=== PATIENT | female | born 1945 | race Caucasian/White ===

== ENCOUNTER → 2021-01-28 | Outpatient (CLI) | payer OTHER ==
[~2021-01-28] MED LIST: BENAZEPRIL HCL40 MG PO; CHLORTHALIDONE25 MG PO; ELIQUIS2.5 MG PO; ELIQUIS5 MG PO; ENDOCET 7.5-321 EACH PO; FLONASE 0.05% N16 GM; GLUCOPHAGE500 MG PO; HYDROCODON-ACE1 EAC6 PO; LIPITOR20 MG PO; LOPRESSOR 50 MG50 MG PO; LORATADINE10 MG PO; MOBIC7.5 MG PO; NORVASC10 MG PO; OMEPRAZOLE20 M1 PO; PROZAC40 MG PO; TOPROL XL50 MG PO
== END ==
LOC: KOH-I 09:25
DX: M89.562 Osteolysis, left lower leg (principal); M25.462 Effusion, left knee; S83.142A Lateral subluxation of proximal end of tibia, left knee, initial encounter; X58.XXXA Exposure to other specified factors, initial encounter; Z96.652 Presence of left artificial knee joint
CPT/HCPCS: 73700

== ENCOUNTER → 2021-01-29 | Outpatient (CLI) | payer OTHER ==
[2021-01-29 09:51] LABS: HEMOGLOBIN 13.3 gm/dl (12.3-15.3); RED BLOOD COUNT 4.46 M/UL (4.00-5.10); WHITE BLOOD COUNT 7.6 K/UL (4.5-11.0)
== END ==
LOC: EDSTATUS 08:30 → OPSV2 08:30
PROVIDERS: Orthopaedic Surgery
DX: Z01.818 Encounter for other preprocedural examination (principal); M89.562 Osteolysis, left lower leg
CPT/HCPCS: 36415; 80048; 83036; 85025; 85652; 86140; 87077; 87081; 87086; 87186; 93005

== ENCOUNTER → 2021-02-03 | Outpatient (CLI) | payer OTHER | LOC: LAB 09:23 | PROVIDERS: Orthopaedic Surgery | DX: Z01.812 Encounter for preprocedural laboratory examination (principal) | CPT/HCPCS: 36415; 80048; 86850; 86900; 86901 ==

== ENCOUNTER 2021-02-04 05:57 | Inpatient (IN) | payer OTHER ==
[~2021-02-04] VITALS: Ht 157.5 cm; Wt 76.2 kg
[~2021-02-04 05:57] MED LIST changes: -ELIQUIS2.5 MG PO; -ELIQUIS5 MG PO; -ENDOCET 7.5-321 EACH PO; -FLONASE 0.05% N16 GM; -HYDROCODON-ACE1 EAC6 PO; -LOPRESSOR 50 MG50 MG PO
[2021-02-04] MEDS ORDERED: ELIQUIS2.5 MG PO (08:32)
[2021-02-04] MEDS ORDERED: ENDOCET 7.5-321 EACH PO (08:32)
[2021-02-05 02:49] LABS: HEMOGLOBIN 9.8 gm/dl (12.3-15.3); RED BLOOD COUNT 3.16 M/UL (4.00-5.10); WHITE BLOOD COUNT 13.6 K/UL (4.5-11.0)
[2021-02-05] MEDS ORDERED: HYDROCODON-ACE1 EAC6 PO (11:13)
--- NOTE | 2021-02-05 11:14 | NUR ---
NOTIFIED OF CRITICAL SODIUM 118.
--- NOTE | 2021-02-05 16:45 | NUR ---
NOTIFIED OF SODIUM 116
[2021-02-06 03:58] LABS: HEMOGLOBIN 8.6 gm/dl (12.3-15.3); WHITE BLOOD COUNT 11.4 K/UL (4.5-11.0)
[2021-02-06 04:02] LABS: RED BLOOD COUNT 2.8 M/UL (4.00-5.10)
[2021-02-06 04:17] LABS: BUN/CREATININE RATIO 30 (0-10)
[2021-02-06] MEDS ORDERED: FLONASE 0.05% N16 GM (08:33)
--- NOTE | 2021-02-06 11:40 | NUR ---
CRITICAL SODIUM LEVEL OF 118, PATIENT WITH PROTOCOL ORDER TO CALL DR. ARREGUIN IF SODIUM LEVEL DROPS BELOW 118 OR IS GREATER THAN 127. DR. VIZCARRA ALSO NOTIFIED. NO NEW ORDERS AT THIS TIME.
--- NOTE | 2021-02-06 12:58 | NUR ---
WHILE WORKING WITH PHYSICAL THERAPY PATIENTS HEMOVAC DRAIN FELL OUT. AREAS REINFORECED WITH 4X4'S AND TAPE. 50 ML IN HEMOVAC AT THAT TIME. SCANT BLOOD NOTED TO AREA AFTER CHECKING 1 HOUR LATER, 4X4'S CHANGED. DR. ENAMORADO GUNNER'S MATE G NOTIFIED. NO NEW ORDERS AT THIS TIME.
[2021-02-07 03:13] LABS: HEMOGLOBIN 7.4 gm/dl (12.3-15.3); WHITE BLOOD COUNT 9.3 K/UL (4.5-11.0)
[2021-02-07 03:18] LABS: RED BLOOD COUNT 2.41 M/UL (4.00-5.10)
[2021-02-07 03:39] LABS: BUN/CREATININE RATIO 25 (0-10)
[2021-02-07 16:16] LABS: HEMOGLOBIN 7.3 gm/dl (12.3-15.3)
--- NOTE | 2021-02-07 17:44 | NUR ---
NOTIFIED ORTHO MANAGER ARCHITECTURAL, DR. ENAMORADO, PER DR. VIZCARRA R/T PATIENT DECREASED HGB AND HCT. DR. ENAMORADO ADVISED NO NEED FOR BLOOD AT THIS CURRENT TIME. CONTINUE TO MONITOR PATIENT AND LABS.
[2021-02-07 22:54] LABS: HEMOGLOBIN 7.1 gm/dl (12.3-15.3)
[2021-02-08 04:28] LABS: HEMOGLOBIN 7.2 gm/dl (12.3-15.3); RED BLOOD COUNT 2.3 M/UL (4.00-5.10); WHITE BLOOD COUNT 8.6 K/UL (4.5-11.0)
[2021-02-08 04:56] LABS: BUN/CREATININE RATIO 20 (0-10)
[2021-02-08 08:25] LABS: HEMOGLOBIN 6.9 gm/dl (12.3-15.3)
[2021-02-09 02:35] LABS: WHITE BLOOD COUNT 8.9 K/UL (4.5-11.0)
[2021-02-09 02:39] LABS: HEMOGLOBIN 10.6 gm/dl (12.3-15.3); RED BLOOD COUNT 3.6 M/UL (4.00-5.10)
[2021-02-09 03:04] LABS: BUN/CREATININE RATIO 11 (0-10)
[2021-02-09 09:07] LABS: BUN/CREATININE RATIO 13 (0-10)
[2021-02-10 02:22] LABS: HEMOGLOBIN 10.1 gm/dl (12.3-15.3); RED BLOOD COUNT 3.48 M/UL (4.00-5.10); WHITE BLOOD COUNT 10.6 K/UL (4.5-11.0)
[2021-02-10 02:51] LABS: BUN/CREATININE RATIO 17 (0-10)
[2021-02-11 02:05] LABS: HEMOGLOBIN 9.8 gm/dl (12.3-15.3); RED BLOOD COUNT 3.3 M/UL (4.00-5.10); WHITE BLOOD COUNT 9.1 K/UL (4.5-11.0)
[2021-02-11 02:30] LABS: BUN/CREATININE RATIO 17 (0-10)
[2021-02-12 04:07] LABS: RED BLOOD COUNT 3.41 M/UL (4.00-5.10); WHITE BLOOD COUNT 7.8 K/UL (4.5-11.0)
[2021-02-12 04:32] LABS: BUN/CREATININE RATIO 14 (0-10)
[2021-02-13 04:28] LABS: HEMOGLOBIN 10.1 gm/dl (12.3-15.3); RED BLOOD COUNT 3.43 M/UL (4.00-5.10)
[2021-02-13 04:48] LABS: BUN/CREATININE RATIO 11 (0-10)
[2021-02-14] MEDS ORDERED: ELIQUIS5 MG PO (10:50)
[2021-02-14] MEDS ORDERED: LOPRESSOR 50 MG50 MG PO (10:50)
--- NOTE | 2021-02-14 13:08 | NUR ---
PATIENT AND DAUGHTER EDUCATED ON DISCHARGE INFORMATION. THEY BOTH AGREE AND UNDERSTAND. IV REMOVED AT 1250. PATIENT TRANSPORTED VIA WHEELCHAIR DOWNSTAIRS BY SUGEY GARCIA.
== END 2021-02-14 13:18 | disposition home or self-care (01) | DRG 466 ==
LOC: OR 05:57 → M/S 08:26 → OR 12:56 → M/S 12:56 → EDSTATUS 15:30 → M/S 02-07 15:20 → PROG CARE 02-08 03:40 → M/S 02-11 16:00
PROVIDERS: Internal Medicine; Internal Medicine Nephrology; Physician Assistant Medical; ADMIT Orthopaedic Surgery
PROC: 0SRD0J9 Replacement of Left Knee Joint with Synthetic Substitute, Cemented, Open Approach (ICD-10-PCS; 2021-02-04)
PROC: 0SPD0JZ Removal of Synthetic Substitute from Left Knee Joint, Open Approach (ICD-10-PCS; principal; 2021-02-04 07:45)
PROC: 30233N1 Transfusion of Nonautologous Red Blood Cells into Peripheral Vein, Percutaneous Approach (ICD-10-PCS; 2021-02-08)
DX: T84.053A Periprosthetic osteolysis of internal prosthetic left knee joint, initial encounter (principal); G93.41 Metabolic encephalopathy; F05 Delirium due to known physiological condition; D62 Acute posthemorrhagic anemia; E87.1 Hypo-osmolality and hyponatremia; T84.033A Mechanical loosening of internal left knee prosthetic joint, initial encounter; I10 Essential (primary) hypertension; I48.91 Unspecified atrial fibrillation; Z96.653 Presence of artificial knee joint, bilateral; R73.03 Prediabetes; E78.5 Hyperlipidemia, unspecified; K21.9 Gastro-esophageal reflux disease without esophagitis; Z87.442 Personal history of urinary calculi; Z90.49 Acquired absence of other specified parts of digestive tract; Z88.5 Allergy status to narcotic agent; Z79.899 Other long term (current) drug therapy; Z90.710 Acquired absence of both cervix and uterus; Z79.84 Long term (current) use of oral hypoglycemic drugs
CPT/HCPCS: ECHO; 36415; 36430; 71046; 73560; 73562; 76000; 80048; 80053; 80202; 81001; 82140; 82436; 82533; 82550; 82553; 82962; 83735; 83935; 84132; 84133; 84295; 84300; 84443; 84484; 85014; 85018; 85025; 85027; 86850; 86900; 86901; 86920; 87070; 87086; 87205; 93005; 93306; 94640; 94664; 94760; 97110; 97110-GP-CQ; 97116; 97116-GP-CQ; 97162; 97164; 97166; 97168; 97530; 97530-GP-CQ; 97535; C1713; C1762; C1776; J0171; J0690; J1100; J1630; J1644; J2001; J2060; J2250; J2405; J2704; J2710; J2795; J3010; J3370; J3475; J3486; J7030; J7040; J7050; J7120; J7131; P9016

== ENCOUNTER → 2021-02-22 | Outpatient (CLI) | payer OTHER ==
[~2021-02-22] MED LIST changes: +ELIQUIS2.5 MG PO; +ELIQUIS5 MG PO; +ENDOCET 7.5-321 EACH PO; +FLONASE 0.05% N16 GM; +HYDROCODON-ACE1 EAC6 PO; +LOPRESSOR 50 MG50 MG PO
[2021-02-22 12:46] LABS: HEMOGLOBIN 11.5 gm/dl (12.3-15.3); RED BLOOD COUNT 3.9 M/UL (4.00-5.10); WHITE BLOOD COUNT 7.3 K/UL (4.5-11.0)
[2021-02-22 13:43] LABS: BUN/CREATININE RATIO 18 (0-10)
== END ==
LOC: LAB 11:50
PROVIDERS: Internal Medicine
DX: D64.9 Anemia, unspecified (principal); E87.1 Hypo-osmolality and hyponatremia
CPT/HCPCS: 36415; 80048; 85025